=== PATIENT | female | born 1945 | race Caucasian/White ===

== ENCOUNTER → 2019-08-22 12:25 | Outpatient (CLI) | payer MEDICARE, SELFPAY ==
--- NOTE | 2019-08-22 12:32 | MRI_ITS ---
HISTORY: Pancreatic lesions. History of cancer. Technique: Axial coronal T1 and T2 in and out of phase pre-gadolinium and post gadolinium series were obtained. Some of the post gadolinium T1-weighted series have fat saturation. 15 series. 819 images. Comparison study is a CT scan of the abdomen and pelvis from August 06, 2019. Findings: Best seen on the coronal images as they imaged more cranially than the axial images, is an abscess within the left breast. It measures 9.8 x 5.8 cm. It appears to contain some hemorrhage. It is mostly fluid, likely pus. Within the lateral segment of the left hepatic lobe anteriorly there is a 6 x 7 mm lesion. On the contrasted CT scan it was hypodense. On the T2 fat saturated series it is hyperintense. On the T1 in and out of phase imaging it is hypointense. On the T1 fat-saturated post gadolinium and pre-gadolinium series it is hypointense, consistent with a benign cyst. Many gallstones remain within the gallbladder lumen. No choledocholithiasis is perceived. Within the head of the pancreas there is a lesion. This lesion is somewhat spherical, and measures 12 mm in diameter. It is hyperintense on T2-weighted series, but not as hyperintense as the gallbladder lumen away from the gallstones. The lesion is hypointense on T1 in and out of phase imaging. It is hypointense on T1 fat sat pre-gadolinium. It does not demonstrate enhancement on the T1 post gadolinium fat sat series. Within the junction of the body and the tail of the pancreas there is a second lesion. It measures 16 x 12 mm. It has the same imaging characteristics as hyperintense on T2 fat sat, hyperintense on T2 and nonfat sat, but not as intense as the gallbladder, hypointense on T1 in and out of phase imaging, hypointense on T1 precontrast fat sat series, and remains hypointense on T1 post gadolinium series. On delayed imaging, when both kidneys are excreting contrast into nondilated systems, it remains hypointense Some tiny cysts are present within the kidneys that are better demonstrated on the CT scan. Circumaortic left renal vein that is present as a normal anatomic variant. The adrenal glands are normal. The spleen is normal. Within the visualized abdomen and upper pelvis no ascites is present. The left hemiabdomen ostomy is present. There is bowel mesentery herniating through the ostomy into the subcutaneous fat. This is similar in appearance to more completely imaged on the recent CT scan. MRI/MRI Abd WITH and W/O Contrast IMPRESSION: 2 lesions within the pancreas, one within the head, one at the junction of the body and head seen on the CT scan recently had imaging characteristics consistent with cystic disease. As these lesions are not as hyperintense on T2-weighted imaging as the gallbladder lumen, the possibility of mucinous cystic neoplasm an intraductal papillary mucinous neoplasm remain within the differential in addition to benign pseudocysts. Due to the patient's age a serous cystic neoplasm remains within the differential as well. Cholelithiasis. Benign appearing lesion within the lateral segment left hepatic lobe is also likely a cyst. More completely imaged on this MRI of the abdomen than on the previous CT scan is a rim-enhancing mass within the left breast consistent with a hemorrhagic abscess. Large left anterior lateral abdominal wall hernia likely at a colostomy site, or perhaps at where the colostomy site used to be.. at 0510 Reported and signed by: Stephen Escalante MD Electronically Signed: Stephen Escalante MD at 5:09 EDT Tel , Service support ,
== END ==
PROVIDERS: PCP Nurse Practitioner Family; Referring Provider Nurse Practitioner Family; Visit Provider Nurse Practitioner Family
DX: K66.9 Disorder of peritoneum, unspecified (principal)
CPT/HCPCS: 74183; A9575; A4216